=== PATIENT | female | born 1985 | race Caucasian/White ===

== ENCOUNTER → 2017-01-29 | Outpatient (CLI) | payer OTHER ==
[~2017-01-29] MED LIST: CALC0.254 PO; CALC200T3 PO; CHOL20002 PO; DOCO200C4 PO; DOCU-30 PO; IBUP-1222 PO; LEVO100T PO; LEVO112T2 PO; LEVO75TA PO; MULT-34 PO; OXYC-302 PO; OXYC5TAB3 PO; [UNRECOGNIZED DRUG - CODE] SC; [UNRECOGNIZED DRUG - OTHER] TP; [UNRECOGNIZED DRUG - OTHER] TP
[2017-01-29 14:48] LABS: C-REACTIVE PROTEIN, QUANT 0.71 mg/dL (0.02-0.49)
[2017-01-29 14:57] LABS: RHEUMATOID FACTOR SCREEN NEGATIVE (NEGATIVE)
== END | disposition home or self-care (01) ==
LOC: LAB 13:57
PROVIDERS: ATTEND Specialist
DX: E89.2 Postprocedural hypoparathyroidism (principal); E89.0 Postprocedural hypothyroidism; E31.22 Multiple endocrine neoplasia [MEN] type IIA; L80 Vitiligo; R76.9 Abnormal immunological finding in serum, unspecified
CPT/HCPCS: 36415; 81003; 82308; 82330; 82378; 82550; 84100; 84439; 84443; 85025; 85730; 86140; 86160; 86200; 86430

== ENCOUNTER → 2017-03-04 | Outpatient (CLI) | payer OTHER | END | disposition home or self-care (01) | LOC: LAB 14:39 | PROVIDERS: ATTEND Internal Medicine Endocrinology, Diabetes & Metabolism | DX: E89.2 Postprocedural hypoparathyroidism (principal) | CPT/HCPCS: 36415; 82310 ==

== ENCOUNTER → 2017-03-20 | Outpatient (CLI) | payer OTHER | END | disposition home or self-care (01) | LOC: LAB 11:19 | PROVIDERS: ATTEND Internal Medicine Endocrinology, Diabetes & Metabolism | DX: E89.2 Postprocedural hypoparathyroidism (principal) | CPT/HCPCS: 36415; 82310 ==

== ENCOUNTER → 2017-04-12 | Outpatient (CLI) | payer OTHER ==
[2017-04-12 11:55] LABS: BLOOD UREA NITROGEN 13 mg/dL (7-18)
[2017-04-12 11:56] LABS: ASPARTATE AMINO TRANSFERASE 42 U/L (15-37)
[2017-04-13 07:17] LABS: IMMUNOGLOBULIN A 73 mg/dL (87-352); IMMUNOGLOBULIN G 1070 mg/dL (700-1600); IMMUNOGLOBULIN M 139 mg/dL (26-217)
== END | disposition home or self-care (01) ==
LOC: LAB 11:17
PROVIDERS: ATTEND Internal Medicine Endocrinology, Diabetes & Metabolism
DX: E83.51 Hypocalcemia (principal); E89.0 Postprocedural hypothyroidism; R76.9 Abnormal immunological finding in serum, unspecified; R94.5 Abnormal results of liver function studies; J02.9 Acute pharyngitis, unspecified; J32.9 Chronic sinusitis, unspecified
CPT/HCPCS: 36415; 80053; 82784; 82785; 84443; 85025; 86308; 86663; 86664; 86665

== ENCOUNTER → 2017-06-17 | Outpatient (CLI) | payer OTHER ==
[~2017-06-17] MED LIST changes: +DOCU-131 PO; -DOCU-30 PO
== END | disposition home or self-care (01) ==
LOC: LAB 11:28
PROVIDERS: ATTEND Internal Medicine Endocrinology, Diabetes & Metabolism
DX: E89.0 Postprocedural hypothyroidism (principal); E89.2 Postprocedural hypoparathyroidism
CPT/HCPCS: 36415; 82040; 82310; 84439; 84443

== ENCOUNTER → 2017-06-21 | Outpatient (CLI) | payer OTHER ==
[~2017-06-21] MED LIST changes: +GADOBUTROL 7.5 MMOL/7.5 ML PFS ONE
== END | disposition home or self-care (01) ==
LOC: CFH 15:06
PROVIDERS: ATTEND Family Medicine
DX: G93.89 Other specified disorders of brain (principal); J32.2 Chronic ethmoidal sinusitis; J32.0 Chronic maxillary sinusitis
CPT/HCPCS: 70552; A9585

== ENCOUNTER → 2017-08-23 | Outpatient (CLI) | payer OTHER ==
[~2017-08-23] MED LIST changes: -GADOBUTROL 7.5 MMOL/7.5 ML PFS ONE
== END ==
LOC: CFH 12:29
PROVIDERS: ATTEND Otolaryngology
DX: J01.01 Acute recurrent maxillary sinusitis (principal); J34.2 Deviated nasal septum
CPT/HCPCS: 70486

== ENCOUNTER → 2017-09-03 | Outpatient (CLI) | payer OTHER ==
[2017-09-03 10:53] LABS: ASPARTATE AMINO TRANSFERASE 26 U/L (15-37); BLOOD UREA NITROGEN 13 mg/dL (7-18)
[2017-09-03 11:03] LABS: CARCINOEMBRYONIC ANTIGEN 0.64 ng/mL (0.0-3.00)
== END | disposition home or self-care (01) ==
LOC: LAB 10:20
PROVIDERS: ATTEND Internal Medicine Endocrinology, Diabetes & Metabolism
DX: E89.0 Postprocedural hypothyroidism (principal); E89.2 Postprocedural hypoparathyroidism
CPT/HCPCS: 36415; 80053; 81050; 82308; 82310; 82378; 82570; 84100; 84439; 84443

== ENCOUNTER → 2017-09-13 | Outpatient (CLI) | payer OTHER | END | disposition home or self-care (01) | LOC: LAB 11:20 | PROVIDERS: ATTEND Internal Medicine Endocrinology, Diabetes & Metabolism | DX: E83.51 Hypocalcemia (principal) | CPT/HCPCS: 36415; 82040; 82310 ==

== ENCOUNTER → 2017-10-22 | Outpatient (CLI) | payer OTHER ==
[2017-10-22 10:57] LABS: BASOPHILS # (AUTO) 0.04 x10^3/uL (0-0.1); BASOPHILS % (AUTO) 1 % (0-1); EOSINOPHILS # (AUTO) 0.12 x10^3/uL (0-0.4); EOSINOPHILS % (AUTO) 2 % (1-7); LYMPHOCYTES # (AUTO) 1.63 x10^3/uL (1-3.4); LYMPHOCYTES % (AUTO) 26 % (22-44); MD NO; MEAN CORPUSCULAR HEMOGLOBIN 29.3 pg (27.0-34.8); MEAN CORPUSCULAR HGB CONC 33.2 g/dL (32.4-35.8); MEAN CORPUSCULAR VOLUME 88.1 fL (80-100); MEAN PLATELET VOLUME 8.2 fL (7.4-10.4); MONOCYTES # (AUTO) 0.42 x10^3/uL (0.2-0.8); MONOCYTES % (AUTO) 7 % (2-9); NEUTROPHILS # (AUTO) 3.95 x10^3/uL (1.8-6.8); NEUTROPHILS % (AUTO) 64 % (42-75); PLATELET COUNT 245 x10^3/uL (130-400); RED CELL DISTRIBUTION WIDTH 12.8 % (9.6-15.2)
== END | disposition home or self-care (01) ==
LOC: LAB 10:33
PROVIDERS: ATTEND Allergy & Immunology
DX: D83.9 Common variable immunodeficiency, unspecified (principal)
CPT/HCPCS: 36415; 82784; 82785; 82787; 85025; 86317; 86355; 86357; 86359; 86360; 86609; 86684

== ENCOUNTER → 2017-11-15 | Outpatient (CLI) | payer OTHER ==
[2017-11-15 14:16] LABS: ALBUMIN 4.3 g/dL (3.4-5.0); CALCIUM 9.6 mg/dL (8.5-10.1)
== END | disposition home or self-care (01) ==
LOC: LAB 13:56
PROVIDERS: ATTEND Internal Medicine Endocrinology, Diabetes & Metabolism
DX: E89.2 Postprocedural hypoparathyroidism (principal)
CPT/HCPCS: 36415; 82040; 82310

== ENCOUNTER → 2017-11-18 | Outpatient (CLI) | payer OTHER | END | disposition home or self-care (01) | LOC: LAB 12:19 | PROVIDERS: ATTEND Internal Medicine Endocrinology, Diabetes & Metabolism | DX: E89.0 Postprocedural hypothyroidism (principal) | CPT/HCPCS: 36415; 84443 ==